=== PATIENT | male | born 1960 | race Caucasian/White ===

== ENCOUNTER 2022-03-17 13:02 | Day surgery (SDC) | payer OTHER ==
[~2022-03-17] VITALS: Ht 180.3 cm; Wt 98.0 kg
[~2022-03-17 13:02] MED LIST: AMARYL2 MG PO; DILAUDID4 MG PO; FERROUS GLUCON324 M1 PO; FLOMAX0.4 MG PO; GLUCOPHAGE XR500 MG PO; IBUPROFEN200 M1 PO; IRON55 MG PO; LANTUS100 UNITS/ SUB-Q; LIPITOR20 MG PO; OMEPRAZOLE20 MG PO; OSTERA TABLET1 EACH PO; PERCOCET 7.5-31 EACH PO; VITAMIN B-650 MG PO; XANAX0.25 MG PO; ZESTRIL2.5 MG PO; [UNRECOGNIZED DRUG - OTHER] MC
--- NOTE | 2022-03-17 15:03 | NUR ---
03/17/22 1503 Sheets,Jyoti 1500 PT ARRIVED TO PACU ON 2L VIA MASK, VSS. PT OPENS HIS EYES AND EASILY FALLS BACK TO SLEEP.
--- NOTE | 2022-03-17 15:19 | NUR ---
PT ALERT, ORIENTED AND SUPPORTED BY HIS DASHAWN. SHE WILL REMAIN FOR DC. GAVE COMFORT AND ENCOURAGEMENT, WILL FOLLOW
--- NOTE | 2022-03-19 14:15 | OR ---
[facility] [address], [place] [address] Signed DATE OF OPERATION: 03/17/2022 SURGEON: Sheron Tillman MD PREOPERATIVE DIAGNOSIS: 1. Family history of gastric and esophageal carcinoma. 2. Diarrhea, uncertain etiology. POSTOPERATIVE DIAGNOSES: 1. Essentially normal upper endoscopy except for fundic diverticulum (small). 2. Extensive diverticulosis sigmoid and left colon, questionable hyperplasia of cecal mucosa. PROCEDURES: 1. Esophagogastroduodenoscopy with biopsy. 2. Total colonoscopy to cecum with biopsy of cecum. ANESTHESIA: Intravenous sedation, fentanyl 150 mcg and Versed 6 mg total. INDICATIONS: This 61-year-old white man is a patient of Dr. Skinner, formally Dr. Willoughby. He is diabetic and has been on metformin and has had problems of diarrhea. It is strongly suspected this is related to his metformin. He is admitted to undergo colonoscopy to better characterize that problem and to assess for polyps and other lesions noted for screening colonoscopy. Additionally, he has a significant family history of gastric carcinoma in his mother and esophageal carcinoma in his father, both are from those ailments. Upper endoscopy is recommended on the basis of his risk for both of those problems. The patient does take omeprazole on a daily basis for low-grade reflux symptoms. He understands risk of bleeding, infection, and perforation related to upper endoscopy and colonoscopy and wished to proceed. FINDINGS: Upper endoscopy showed normal esophagus, stomach and duodenum except for a small diverticulum at the fundus of the stomach. CLOtest was negative. On colonoscopy, the prep was quite good. Complete colonoscopy was undertaken of the cecum. There were numerous diverticula of the sigmoid and left colon. No sign of Electronically Signed By: SHERON TILLMAN MD 03/19/22 1415 PATIENT NAME: LC HOPKINS OPERATIVE REPORT DATE OF : 56 REPORT #: [id number] PHYSICIAN: SHERON TILLAMN MD PCP: ABNER SKINNER MD REPORT IS CONFIDENTIAL AND NOT TO BE RELEASED WITHOUT AUTHORIZATION [facility] [address], [place] [address] Signed polyps or colitis. There was some mucosa of cecum that seemed somewhat hyperplastic, not particularly adenomatous in appearance, but biopsies were obtained nevertheless to differentiate that. DESCRIPTION OF PROCEDURE: The patient was brought to the endoscopy suite and placed in lateral decubitus position, given intravenous sedation a point of slurred speech and nystagmus with full cardiopulmonary monitoring. Preoperative lidocaine had been administered to the hypopharynx. An Olympus video upper endoscope was passed into the hypopharynx. The vocal cords were normal. Scope was advanced to the esophagus, throughout its length, it was normal. Scope was passed to the stomach, which was insufflated with air. Rugal folds were normal. Antral motility normal. Pylorus normal. Scope was passed through into the duodenum, which was normal. The scope was withdrawn. A biopsy taken of the antrum for both SUNITA and pathologic testing. Retroflexed view showed a very good flap valve, but a small diverticulum at the fundus of the stomach, which was ultimately intubated and found to be without sign of abnormality otherwise. The scope was straightened, withdrawn and biopsies then taken of the normal-appearing esophagus. Further withdrawal showed no other abnormalities of the GI tract in any way. Plans were then made for colonoscopy. Additional sedation was given and digital rectal examination performed, which was normal. An Olympus video colonoscope was passed into the rectum and manipulated throughout the colon noting numerous diverticula of sigmoid and left colon. The scope was ultimately passed to the cecum. The ileocecal valve and appendiceal orifice were normal. Scope was withdrawn a bit and some of the mucosa of the cecum appeared somewhat nodular, though not particularly adenomatous in appearance. Biopsies were obtained as this may represent simply hyperplasia. The scope was further withdrawn. Remaining colon was normal except the diverticula. The scope was removed. The patient was taken to the recovery room in good condition. CONCLUDING DIAGNOSES: 1. Essentially normal upper endoscopy with small diverticula of fundus of stomach. 2. Diverticulosis of sigmoid and left colon. No evidence of polyps or cancer. PLAN: We would recommend continued use of PPI medication that he has for symptomatic reflux in spite of a normal appearing flat bowel. We would recommend Metamucil or other fiber supplement one scoop p.o. daily to assess that this may benefit as regard to his diarrhea; more importantly, consideration will be made for withdrawal of metformin or Electronically Signed By: SHERON TILLMAN MD 03/19/22 1415 PATIENT NAME: LC HOPKINS OPERATIVE REPORT DATE OF : 56 REPORT #: [id number] PHYSICIAN: SHERON TILLMAN MD PCP: ABNER SKINNER MD REPORT IS CONFIDENTIAL AND NOT TO BE RELEASED WITHOUT AUTHORIZATION [facility] [address], [place] [address] Signed decreasing its dose as he unlikely has an underlying microscopic colitis or other element. MD MOHIT Harman/VANDANAL /[id number] cc: Abner Skinner MD Copies: ABNER SKINNER MD ~ Electronically Signed By: SHERON TILLMAN MD 03/19/22 1415 PATIENT NAME: LC HOPKINS OPERATIVE REPORT DATE OF : 56 REPORT #: [id number] PHYSICIAN: SHERON TILLMAN MD PCP: ABNER SKINNER MD REPORT IS CONFIDENTIAL AND NOT TO BE RELEASED WITHOUT AUTHORIZATION
--- NOTE | 2022-03-23 17:39 | PATH ---
[facility] [address] [place], [place] [address] Signed SPECIMEN(S): A ANTRUM BIOPSY SPECIMEN(S): B DISTAL ESOPHAGEAL BIOPSY SPECIMEN(S): C CECUM BIOPSY SPECIMEN SOURCE: A. ANTRUM BIOPSY B. DISTAL ESOPHAGEAL BIOPSY C. CECUM BIOPSY CLINICAL HISTORY: Pre: GERD; diarrheal disorder; blood per rectum. Post: Fundic gastric diverticulosis; diverticulosis FINAL PATHOLOGIC DIAGNOSIS: A. Stomach, antrum, biopsy: - No significant histopathologic alterations. B. Distal esophagus, biopsy: - Reflux esophagitis. - No evidence of Holt's esophagus. C. Colon, cecum, biopsy: - No significant histopathology. COMMENT: Regarding specimen A, the sections through the gastric biopsies show fragments of histologically unremarkable antral mucosa. There is no evidence of acute or chronic inflammation. There is no evidence of H. pylori, intestinal metaplasia, abnormal infiltrates or neoplasia. Regarding specimen B, the sections through the biopsy show strips of reactive appearing squamous mucosa with basal cell hyperplasia. The epithelium is infiltrated by lymphocytes and small numbers of eosinophils. No glandular mucosa or intestinal metaplasia is identified. Regarding specimen C, the sections from the specimen contain architecturally normal colonic mucosa without crypt distortion. There is no acute or chronic inflammation. There is no evidence of microscopic colitis. There are no abnormal organisms or infiltrates. There are no polyps or neoplasms. STEVEK:[id number]:[id number] MICROSCOPIC EXAMINATION: Histologic sections of all submitted blocks are examined by light microscopy. PATIENT NAME: LC HOPKINSN PATHOLOGY DATE OF : 56 REPORT #: [id number] PHYSICIAN: VALENTIN DUGGAN PCP: ABNER VALENTINE MD REPORT IS CONFIDENTIAL AND NOT TO BE RELEASED WITHOUT AUTHORIZATION [facility] [address] [facility] [place] [address] Signed These findings, together with the gross examination, support the pathologic diagnosis. GROSS DESCRIPTION: Three specimens are received in three containers, labeled "Lc Hopkins." A. The specimen, labeled "Lc Hopkins, #1," and designated on the requisition "antrum biopsy," is received in formalin and consists of one beckwith soft tissue fragment that measures 0.4 cm in greatest dimension. The specimen is entirely submitted in cassette (A1). B. The specimen, labeled "Lc Hopkins, #2," and designated on the requisition "distal esophagus biopsy," is received in formalin and consists of one white-beckwith soft tissue fragment that measures 0.6 cm in greatest dimension. The specimen is entirely submitted in cassette (B1). C. The specimen, labeled "Lc Hopkins, #3," and designated on the requisition "cecum biopsy, possible polyp," is received in formalin and consists of five white and beckwith soft tissue fragments that measure 0.2 to 0.3 cm in greatest dimension. The specimen is entirely submitted in cassette (C1). FB (under the direct supervision of a pathologist) The Gross Description was prepared using a voice recognition system. The report was reviewed for accuracy; however, sound-alike word errors, addition and/or deletions may occur. If there is any question about this report, please contact Client Services. PERFORMING LABORATORY: The technical component was performed by [facility], [address] [place] [id number] (CLIA# [id number]). The professional interpretation was performed by [facility], [facility], [address] [place] [address] (CLIA#: [id number]). Diagnostician: Tu Kat MD Pathologist Electronically Signed 03/23/2022 Copies: ~ PATIENT NAME: RIZWANSAMARALC PATHOLOGY DATE OF : 56 REPORT #: [id number] PHYSICIAN: VALENTIN DUGGAN PCP: ABNER VALENTINE MD REPORT IS CONFIDENTIAL AND NOT TO BE RELEASED WITHOUT AUTHORIZATION
== END 2022-03-17 15:57 | disposition home or self-care (01) ==
LOC: OPS 13:02 → DS 13:08 → OPS 14:00 → DS 14:00 → OPS 15:57
PROVIDERS: ATTEND Surgery
PROC: 0DBH8ZX Excision of Cecum, Via Natural or Artificial Opening Endoscopic, Diagnostic (ICD-10-PCS; 2022-03-17)
PROC: 0DB58ZX Excision of Esophagus, Via Natural or Artificial Opening Endoscopic, Diagnostic (ICD-10-PCS; principal; 2022-03-17 14:00)
PROC: 0DB68ZX Excision of Stomach, Via Natural or Artificial Opening Endoscopic, Diagnostic (ICD-10-PCS; 2022-03-17 14:00)
DX: K21.00 Gastro-esophageal reflux disease with esophagitis, without bleeding (principal); K31.4 Gastric diverticulum; K57.30 Diverticulosis of large intestine without perforation or abscess without bleeding; R19.7 Diarrhea, unspecified; E11.9 Type 2 diabetes mellitus without complications; Z79.84 Long term (current) use of oral hypoglycemic drugs; Z80.0 Family history of malignant neoplasm of digestive organs
CPT/HCPCS: 99153; G0500; J2250; J3010; J7121